=== PATIENT | male | born 1975 ===

== ENCOUNTER 2017-04-24 14:53 | Emergency (ER) | payer SELFPAY ==
[2017-04-24 15:07] VITALS: BP 153/88; PULSE 88; RESP 16; TEMP 99; O2SAT 100
--- NOTE | 2017-04-24 16:20 | ED PDOC ---
HPI: Eye Injury/Pain Time Seen by Provider: 04/24/17 15:13 Chief Complaint (Nursing): Eye Problem Chief Complaint (Provider): Eye Problem History Per: Patient History/Exam Limitations: no limitations Onset/Duration Of Symptoms: Days (x6) Additional Complaint(s): Geronimo Vallecillo, 41 year old male presents to the ED on 04/24/17 concerned about exposure to an AC filter 6 days prior to arrival. The patient states he opened an AC unit and was exposed to the filter which fell on his face. This prompted him to visit the emergency room today. PPt reports eye pain initially; however, none today Past Medical History Reviewed: Historical Data, Nursing Documentation, Vital Signs Vital Signs: Last Vital Signs Temp 99.0 F 04/24/17 15:05 Pulse 88 04/24/17 15:05 Resp 16 04/24/17 15:05 BP 153/88 H 04/24/17 15:05 Pulse Ox 100 04/24/17 15:05 - Medical History PMH: No Chronic Diseases - Family History Family History: States: Unknown Family Hx - Home Medications Home Medications: Ambulatory Orders Medication Instructions Recorded Ondansetron ODT [Zofran ODT] 4 mg PO Q6 PRN #10 odt 04/24/17 - Allergies Allergies/Adverse Reactions: Allergies Allergy/AdvReac Type Severity Reaction Status Date / Time No Known Allergies Allergy Verified 04/24/17 15:05 Review of Systems ROS Statement: Except As Marked, All Systems Reviewed And Found Negative Constitutional: Positive for: Other (concerned of AC filter exposure ) Physical Exam - Reviewed Nursing Documentation Reviewed: Yes Vital Signs Reviewed: Yes - Physical Exam Appears: Positive for: Non-toxic, No Acute Distress Head Exam: Positive for: ATRAUMATIC, NORMOCEPHALIC Skin: Positive for: Normal Color Eye Exam: Positive for: Normal appearance ENT: Positive for: Normal ENT Inspection Respiratory: Positive for: Normal Breath Sounds Neurologic/Psych: Positive for: Alert, Oriented (x3) - ECG O2 Sat by Pulse Oximetry: 100 (RA) Pulse Ox Interpretation: Normal Medical Decision Making Medical Decision Making: Initial Impression: Concerned of AC filter exposure Scribe Attestation: Documented by Alysha Nixon, acting as a scribe for Yuliana Medley PA-C. Provider Scribe Attestation: All medical record entries made by the Scribe were at my direction and personally dictated by me. I have reviewed the chart and agree that the record accurately reflects my personal performance of the history, physical exam, medical decision making, and the department course for this patient. I have also personally directed, reviewed, and agree with the discharge instructions and disposition. Disposition - Clinical Impression Clinical Impression: Contact allergic reaction - Patient ED Disposition Is Patient to be Admitted: No - Disposition Disposition: Routine/Home Disposition Time: 17:53 Condition: STABLE Prescriptions: Ondansetron ODT [Zofran ODT] 4 mg PO Q6 PRN #10 odt PRN Reason: Nausea/Vomiting Instructions: Contact Precautions (ED) Print Language: LAO
== END 2017-04-24 16:23 | disposition home or self-care (01) ==
LOC: H.ER 14:53
DX: T78.40XA Allergy, unspecified, initial encounter (principal)